=== PATIENT | female | born 1950 | race Caucasian/White ===

== ENCOUNTER 2016-11-14 08:52 | Inpatient (IN) ==
[2016-11-14] MEDS ORDERED: IOPAMIDOL 100 ML BOTTLE IJ ONE (08:53)
[2016-11-14] MEDS ORDERED: 0.9 % SODIUM CHLORIDE 1,000 ML IV ONE (09:21)
[2016-11-14] MEDS ORDERED: ONDANSETRON 4 MG/2 ML VIAL IV ONE (09:23)
--- NOTE | 2016-11-14 09:34 | Emergency Department Note ---
Abdominal Pain HPI - General Chief Complaint: Abdominal Pain Stated Complaint: abd pain Time Seen by Provider: 11/14/16 09:18 Source: patient Mode of arrival: ambulatory Limitations: no limitations - History of Present Illness HPI Narrative: 66-year-old female with a history of abdominal pain is in for the past 12 hours. s He said nausea, vomiting a lot and diarrhea. Been no blood in the stool. She is unable to give us a number. She denies urgency, frequency or dysuria, although the urine is showing large amount of leukocytes. On initial dip. Is having some slight suprapubic tenderness, but there is no CVA tenderness. She's had an appendectomy in the past - Related Data Home Medications Medication Instructions Recorded Confirmed Levothyroxine Sodium [Synthroid] 112 mcg PO DAILY 04/12/15 11/14/16 Losartan [Cozaar] 50 mg PO DAILY 04/12/15 11/14/16 Sertraline [Zoloft] 100 mg PO DAILY 04/12/15 11/14/16 Allergies Allergy/AdvReac Type Severity Reaction Status Date / Time Cephalosporins Allergy Severe Anaphylaxis Verified 07/27/16 14:12 Review of Systems All systems ED: reviewed and negative except as stated. Constitutional: Denies: fever, chills Gastrointestinal: Reports: as per HPI, abdominal pain, nausea, vomiting, diarrhea. Denies: constipation, hematemesis, melena, hematochezia Genitourinary: Reports: as per HPI. Denies: urgency, dysuria, frequency, hematuria, discharge Abdominal Pain PMH - Past Medical History Medical history: Reports: hypertension, other (polymyalgia rheumatica, lupus, hypothyroidism, vitiligo fibromyalgioa). Denies: coronary artery disease, CVA, TIA Surgical history ED: Reports: other Family history: Reports: other (mother diabetic lived to be 84. Father was 88) - Social History Alcohol use: Reports: Unknown Drug use: Reports: none Physical Exam - General Limitations: no limitations General appearance: alert, in no apparent distress - Head Head exam: atraumatic - Eye Eye exam: Present: normal appearance, PERRL - ENT ENT exam: normal exam, normal oropharynx - Neck Neck exam: Present: normal inspection, full ROM - Chest Chest inspection: Present: normal inspection. Absent: symmetric chest wall rise - Respiratory Respiratory exam: Present: normal lung sounds bilaterally. Absent: respiratory distress, wheezes - Cardiovascular Cardiovascular exam: Present: regular rate, normal rhythm. Absent: bradycardia , tachycardia - Abdominal Exam Abdominal exam: Present: soft. Absent: distention, tenderness - Extremities Exam Extremities exam: Present: normal inspection, full ROM - Back Exam Back exam: Present: normal inspection, full ROM - Neurological Exam Neurological exam: Present: alert, oriented X3 - Psychiatric Psychiatric exam: Present: normal affect, normal mood - Skin Skin exam: Present: warm Course Vital Signs Temperature 97.5 F L 11/14/16 08:53 Pulse Rate 62 11/14/16 08:53 Respiratory Rate 20 11/14/16 08:53 Blood Pressure 145/72 11/14/16 08:53 Pulse Oximetry (%) 99 11/14/16 08:53 Temperature 97.5 F L 11/14/16 08:53 Pulse Rate 64 11/14/16 12:15 Respiratory Rate 14 11/14/16 11:45 Blood Pressure 163/87 11/14/16 12:15 Pulse Oximetry (%) 98 11/14/16 12:15 Abdominal Pain - MDM Narrative Medical decision making narrative: patient has a UTI and patient was started on Levaquin IV 500 mg. Pain was tender throughout her abdomen and CT was performed which does reveal a small bowel obstruction on the right. She's had an appendectomy in the past. Dr. Bustillos contacted and is here to evaluate. NG tube has been placed - Lab Data Result diagrams: 11/14/16 09:32 11/14/16 09:32 Lab Results 11/14/16 11/14/16 11/14/16 Range/Units 09:20 09:32 09:32 WBC 12.5 H (4.5-11.0) K/mcL RBC 5.16 (4.00-5.20) M/mcL Hgb 14.8 (12.0-15.0) g/dL Hct 44.8 (36.0-48.0) % MCV 86.9 (80.0-100.0) fL MCH 28.7 (26.0-34.0) pg MCHC 33.0 (31.0-36.0) g/dL RDW 12.8 (11.5-14.5) % Plt Count 248 (140-440) K/mcL MPV 8.1 (7.4-10.4) fL Gran % 86.4 H (38.0-78.0) % Lymph % (Auto) 9.6 L (15.5-49.0) % [place] % (Auto) 2.0 (1.0-12.0) % Eos % (Auto) 1.8 (0.0-7.0) % Baso % (Auto) 0.2 (0.0-2.0) % Gran # 10.8 H (1.8-8.0) K/mcL Lymph # 1.2 L (1.5-4.8) K/mcL Greene # 0.2 (0.1-0.9) K/mcL Eos # 0.2 (0.0-0.7) K/mcL Baso # 0 (0.0-0.3) K/mcL Sodium 140 (133-145) mmol/L Potassium 4.3 (3.3-5.1) mmol/L Chloride 100 (96-108) mmol/L Carbon Dioxide 24 (22-30) mmol/L Anion Gap 16.0 (8-16) BUN 19 (8-23) mg/dl Creatinine 0.8 (0.6-1.1) mg/dl GFR Calculation 78 Glucose 143 H (70-105) mg/dL Calcium 9.2 (8.6-10.4) mg/dl Total Bilirubin 0.3 (0.0-1.0) mg/dL AST 16 (0-37) U/l ALT 12 (0-40) U/l Alkaline Phosphatase 92 (39-117) U/L Total Protein 7.6 (5.9-8.4) gm/dL Albumin 4.4 (3.2-5.2) gm/dL Globulin 3.2 (2.2-3.7) gm/dL Albumin/Globulin Ratio 1.4 (1.0-2.3) Lipase 19 (7-60) U/L Urine Color Yellow Urine Appearance Hazy Urine pH 6.0 (5.0-9.0) Ur Specific [place] 1.023 (1.000-1.035) Urine Protein Neg (NEG) mg/dL Urine Glucose (UA) Negative (NEG) mg/dL Urine Ketones Neg (NEG) mg/dL Urine Occult Blood >=1.0 A (<0.03) mg/dL Urine Nitrate Pos A (NEG) Urine Bilirubin Neg (NEG) mg/dL Urine Urobilinogen Neg (NEG) mg/dL Ur Leukocyte Esterase 75 A (NEG) /uL Urine RBC 26 H (0-1) /hpf Urine WBC 23 H (0-4) /hpf Ur Squamous Epith Cells 0 (0-4) /hpf Ur Transition Epith Cell < 1 (0-2) /hpf Calcium Oxalate Crystal Many A (0) /hpf Urine Bacteria Mod A (0) /hpf Urine Mucus Mod (0) /hpf Ur Culture Indicated? Yes Disposition Clinical Impression: Small bowel obstruction, UTI (urinary tract infection) Disposition: Xfer As Inpt ([facility]) Condition: Good Referrals: Madeline Guerrero ARNP [Primary Care Provider] - Time of Disposition: 13:12
[2016-11-14 09:54] LABS: Basophils # (Auto) 0 K/mcL (0.0-0.3); Basophils % (Auto) 0.2 % (0.0-2.0); Eosinophils # (Auto) 0.2 K/mcL (0.0-0.7); Eosinophils % (Auto) 1.8 % (0.0-7.0); Granulocytes % (Auto) 86.4 % (38.0-78.0); Lymphocytes # (Auto) 1.2 K/mcL (1.5-4.8); Lymphocytes % (Auto) 9.6 % (15.5-49.0); Mean Cell Volume 86.9 fL (80.0-100.0); Mean Corpuscular Hemoglobin 28.7 pg (26.0-34.0); Monocytes # (Auto) 0.2 K/mcL (0.1-0.9); Platelet Count 248 K/mcL (140-440); RBC 5.16 M/mcL (4.00-5.20); Red Cell Distribution Width 12.8 % (11.5-14.5)
[2016-11-14 10:12] LABS: ALT/SGPT 12 U/l (0-40); Albumin 4.4 gm/dL (3.2-5.2); Albumin/Globulin Ratio 1.4 (1.0-2.3); Alkaline Phosphatase 92 U/L (39-117); Blood Urea Nitrogen 19 mg/dl (8-23); Lipase 19 U/L (7-60)
[2016-11-14 10:26] LABS: Appearance,Urine HAZY; Bacteria,Urine MOD /hpf (0); Bilirubin,Urine NEG (NEG); Calcium Oxalate Crystals,Urine MANY /hpf (0); Color,Urine YELLOW; Glucose,Urine (UA) NEGATIVE (NEG); Leukocyte Esterase,Urine 75 /uL (NEG); Mucus,Urine MOD /hpf (0); Nitrate,Urine POS (NEG); Protein,Urine NEG (NEG); Specific Gravity,Urine 1.023 (1.000-1.035); Urine Blood >=1.0 mg/dL (<0.03); Urine RBC 26 /hpf (0-1); Urine Squamous Epithelial Cell 0 /hpf (0-4); Urine Transitional Epi Cells < 1 /hpf (0-2); Urine WBC 23 /hpf (0-4); Urobilinogen,Urine NEG (NEG)
--- NOTE | 2016-11-14 10:36 | XRay Report ---
CLINICAL INFORMATION: Abdominal pain TECHNIQUE: Supine and upright abdomen COMPARISON: CT scan dated 09/23/2011 FINDINGS: There is fecal material within the colon. There is small bowel gas in the midabdomen. No significant air-fluid levels. No pneumoperitoneum. No biliary or portal venous gas. No pneumatosis. Bowel gas pattern is considered nonspecific. No pathologic calcifications. No focal abnormality. IMPRESSION: Nonspecific abdomen. Interpreted and Authenticated by: Jayden Clayton 11/14/16
[2016-11-14] MEDS ORDERED: PANTOPRAZOLE 40 MG VIAL IV ONE (10:42)
[2016-11-14] MEDS: HYDROmorphone 2 MG/ML SYRINGE IV PRN ×5 (11:17→21:38)
[2016-11-14] MEDS ORDERED: PHENAZOPYRIDINE 200 MG TABLET PO ONE (11:18)
[2016-11-14] MEDS ORDERED: LEVOFLOXACIN 500 MG/100 ML BAG IV ONE (11:18)
--- NOTE | 2016-11-14 12:28 | Cat Scan Report ---
CLINICAL INFORMATION: History of urinary tract infection and abdominal aortic aneurysm. Abdominal pain. COMPARISON: Plain film examination dated 11/14/2016 TECHNIQUE: Axial images were obtained through the abdomen and pelvis. Sagittally and coronally reformatted images. 80 mL nonionic contrast material injected intravenously. Water was given as an oral contrast agent FINDINGS: Stomach and proximal small bowel are fluid-filled and distended. There appears to be a transition point in the midline proximal pelvis. Appearance is consistent with mechanical small bowel obstruction. There is no closed loop obstruction. There is no bowel wall thickening. No pneumatosis. No biliary or portal venous gas. Uterus is not identified consistent with previous hysterectomy. Neck given a history of other surgery. Adhesions are the most likely cause of this midline pelvic small bowel obstruction. There is a small amount of free fluid within the pelvis as well as around the liver. Lung bases are negative. No parenchymal infiltrate or mass. Liver is negative. No focal intrahepatic abnormalities. Gallbladder is present. No calcified gallstones. Spleen is negative. No splenomegaly. Normal enhancement splenic and portal veins. Negative pancreas. No pancreatic mass. Adrenal glands are negative. Kidneys are negative. No solid or cystic mass. No hydronephrosis. Patient gives a history of abdominal aortic aneurysm. There is calcification of the abdominal aorta. Maximum AP diameter measures 3.2 cm. No paraaortic soft tissue abnormality. No retroperitoneal or mesenteric adenopathy. Degenerative disc disease at L4-L5. Sacrum and pelvis are negative. No fracture. No lytic lesion. IMPRESSION: 1. Findings consistent with mechanical small bowel obstruction. Transition point in the midline pelvis 2. Small amount of free intraperitoneal fluid. No bowel wall thickening. Interpreted and Authenticated by: Jayden Clayton 11/14/16
--- NOTE | 2016-11-14 13:02 | XRay Report ---
CLINICAL INFORMATION: Esophagogastric tube placement TECHNIQUE: AP abdomen and lower chest COMPARISON: None. FINDINGS: Esophagogastric tube with its tip in the stomach. The tip is at the proximal body. IMPRESSION: Esophagogastric tube in the stomach Interpreted and Authenticated by: Jayden Clayton 11/14/16
--- NOTE | 2016-11-14 14:17 | Consultation ---
DATE OF CONSULTATION: 11/14/2016 CHIEF COMPLAINT: The patient is seen in consultation at the request of Dr. Packer for abdominal pain with associated nausea, vomiting and diarrhea. HISTORY OF PRESENT ILLNESS: The patient is a 66-year-old woman who presented to the emergency department with complaints of abdominal pain that began at 10:00 last night. She describes it as a very bad abdominal pain that started in the middle of her abdomen. She tried to get relief by trying to force herself to pass stool thinking this would help. Initially, she passed small bits of formed stool, but then subsequently this turned to diarrhea. She had 3 episodes of diarrhea last night. This, however, did not help her abdominal pain. She subsequently had an episode of emesis which consisted of about 2 to 3 cups in amount of white liquid. She reports that she had cereal for dinner. She also tried walking and tried warm packs and ice packs as well as Rolaids to help alleviate her pain but none of this helped. Because of the persistence of her pain, she presented to the Emergency Department today for further evaluation. She denies ever having had pain like this before. Her past medical history is significant for previous abdominal operations as well as a recently diagnosed abdominal aortic aneurysm for which she is scheduled to follow up with a quiller runner in [place] in November. REVIEW OF SYSTEMS: Constitutional: Denies fevers or chills. Pulmonary: Denies any new cough or onset of production of sputum. Denies any history of asthma or COPD. Cardiovascular: Denies chest pain or pressure at rest or with exertion. Denies history of arrhythmia, or palpitations. Denies history of OK. Reports that she is able to walk up 2 flights of stairs without difficulty. Hematologic: She reports a history of pulmonary embolism in 1973. She reports no further blood clots or clotting disorder since then. She denies any history of blood transfusion. : She reports a \\"constant UTI\\" which began around mid . She has never been evaluated by a truck caterer or a urologist for this. She does report dysuria with urination. GI: Abdominal pain with nausea, vomiting and diarrhea as per above. Denies any history of liver disease or diagnosis of hepatitis. ALLERGIES: She reports an allergy to CEPHALOSPORINS with reaction of anaphylaxis. She states she is able to take penicillins and has taken penicillin in the past including amoxicillin and other types of penicillin. PAST MEDICAL HISTORY: 1. Polymyalgia rheumatica. 2. Lupus. 3. Recent diagnosis of abdominal aortic aneurysm. 4. Tubal ligation in the complicated by a retained sponge with followup surgery for removal of sponge and bilateral oophorectomy. 5. Hysterectomy in 1973. 6. Bladder suspension in 1979. 7. Perirectal abscess with drainage in 1973. 8. Pulmonary embolus in 1973, treated with anticoagulant therapy. 9. Benign abdominal tumor removal 30 years ago. SOCIAL HISTORY: The patient is a smoker of 1 pack of cigarettes per day for 45 years. She denies alcohol intake. She denies recreational drug use. She is and lives locally. 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 PHYSICAL EXAMINATION: VITAL SIGNS: Temperature 97.5, pulse 59, blood pressure 163/87. O2 saturation is 98 percent on room air. GENERAL: Ms. Mercado is a well-developed, well-nourished woman in no acute distress. HEENT: Head is normocephalic. Sclerae are white. Mucous membranes are moist. NG tube is in place with nonbilious, mostly clear gastric output. NECK: Supple. CHEST: Breath sounds are clear bilaterally. No rales or wheezes are heard. No use of accessory respiratory musculature. CARDIOVASCULAR: Regular rhythm and rate. ABDOMEN: Soft, tender in the right mid abdomen and in the upper left quadrant. No guarding or rebound noted. No masses palpated. There is a well-healed vertical midline scar in the infraumbilical position. EXTREMITIES: Warm without cyanosis, clubbing, or edema. DP pulses are easily palpable bilaterally. : Normal genitalia. There is a scar in the perianal skin extending laterally on the right side from site of previous perirectal abscess drainage. LABS AND STUDIES: CBC shows an elevated white blood cell count of 12.5 with a left shift of 86.4. Hemoglobin is 14.8, hematocrit 44.8 and platelets of 248. Serum chemistries show sodium of 140, potassium 4.3, chloride 100, CO2 24, anion gap 16, BUN 19, creatinine 0.8, glucose 143, total bilirubin 0.3, AST 16, ALT 12, alkaline phosphatase 92, albumin 4.4 and lipase of 19. Urinalysis is positive for leukocyte esterase, white blood cells and RBCs with no squamous epithelial cells. Bacteria is also present. Urine is reflexed to culture. CT scan of the abdomen and pelvis was performed while the patient was in the emergency department. I have reviewed the CT scan images with the radiologist. There is fluid-filled distention of the proximal small bowel with an area that appears to be a transition point in the midline in the pelvis. Findings are consistent with a small-bowel obstruction. There are no changes to suggest a closed loop obstruction. No bowel wall thickening. No pneumatosis. ASSESSMENT AND PLAN: 1. Mechanical small-bowel obstruction. I reviewed with the patient and her daughter, who was also present throughout the evaluation and discussion, findings on imaging and explained what this diagnosis means. Given her multiple prior abdominal surgeries, it is probable that scar tissue may be contributing to kinking of the bowel causing a mechanical obstruction, even if she was able to pass stool yesterday and that there is stool noted in the colon on CT scan and examination at this time does not reveal signs of significant distention or peritonitis. Treatment will be with more conservative management with NG tube placement and decompression of the bowel along with keeping her nothing by mouth and IV fluid hydration. Serial exams and repeat abdominal x-rays to follow her progress will be performed. If there is worsening of her bowel obstruction or it appears this is not to resolve with conservative management, then we did discuss that there would be a need for operative intervention. The patient verbalized understanding and agreement with this plan. 2. Urinary tract infection. The patient has already been dosed with antibiotics here during the Emergency Department. These will be continued upon admission. RC:[email or web address] Job ID: [id number] Doc ID: [id number] Johanne Bustillos MD
[2016-11-14] MEDS ORDERED: ONDANSETRON 4 MG/2 ML VIAL IV PRN (14:54)
[2016-11-14] MEDS: LACTATED RINGERS 1,000 ML IV SCH (15:06)
[2016-11-15] MEDS: LACTATED RINGERS 1,000 ML IV SCH ×3 (01:08→21:02)
[2016-11-15] MEDS: HYDROmorphone 2 MG/ML SYRINGE IV PRN ×5 (01:23→20:57)
[2016-11-15 06:59] LABS: Basophils # (Auto) 0 K/mcL (0.0-0.3); Basophils % (Auto) 0.3 % (0.0-2.0); Eosinophils # (Auto) 0.2 K/mcL (0.0-0.7); Eosinophils % (Auto) 1.6 % (0.0-7.0); Granulocytes % (Auto) 72.6 % (38.0-78.0); Lymphocytes # (Auto) 2.1 K/mcL (1.5-4.8); Mean Corpuscular HGB Conc 33.5 g/dL (31.0-36.0); Mean Corpuscular Hemoglobin 29.2 pg (26.0-34.0); Monocytes # (Auto) 0.5 K/mcL (0.1-0.9); Monocytes % (Auto) 4.5 % (1.0-12.0); Platelet Count 216 K/mcL (140-440); RBC 4.73 M/mcL (4.00-5.20); Red Cell Distribution Width 13.2 % (11.5-14.5)
--- NOTE | 2016-11-15 07:33 | XRay Report ---
CLINICAL INFORMATION: Small bowel obstruction TECHNIQUE: Supine and upright abdomen COMPARISON: Previous plain film examination dated 11/14/[address] scan dated 11/14/2016 FINDINGS: Bowel gas pattern is currently considered nonspecific. There is some small bowel gas. There is minimal colonic gas. No significant air-fluid levels on upright abdomen. No pneumoperitoneum. No biliary or portal venous gas. Esophagogastric tube remains in the stomach. IMPRESSION: Nonspecific bowel gas pattern. No distended gas-filled small bowel Interpreted and Authenticated by: Jayden Clayton 11/15/16
[2016-11-15 07:35] LABS: ALT/SGPT 9 U/l (0-40); Albumin 3.5 gm/dL (3.2-5.2); Albumin/Globulin Ratio 1.3 (1.0-2.3); Alkaline Phosphatase 72 U/L (39-117); Blood Urea Nitrogen 13 mg/dl (8-23)
--- NOTE | 2016-11-15 07:40 | General Surgery Progress Note ---
[id number] Date, if different from initiated Date: [] Patient: Yanira Mercado 66 y/o F admitted on 11/14/16 for abd pain. Chief Complaint: Patient sitting up in bed. Still has abdominal pain. No nausea or emesis. NGT output minimal. Reports a small episode of flatus this morning. Vital Signs Temp Pulse Resp BP Pulse Ox 98.4 F 64 18 137/76 91 11/15/16 07:19 11/15/16 07:19 11/15/16 07:19 11/15/16 07:19 11/15/16 07:19 Period Temp Pulse Resp BP Sys/Cardona Pulse Ox Last 24 Hr 97.5 F-98.6 F 57-92 14-20 135-170/66-88 90-99 Intake and Output 11/14/16 11/15/16 11/15/16 21:59 05:59 13:59 Intake Total 1000 / 1000 Output Total 425 / 425 550 / 550 Balance -425 / -425 450 / 450 Weight 144 lb 8 oz PE: No distress Chest: clear bilaterally CV: regular rate and rhythm. Pulse recorded by Propac earlier in 90s upon awakening but manually at bedside pulse is in 60s. ABD: soft, LUQ tenderness unchanged. Non distended. No guarding or rebound. NGT in place with minimal output since last night--non bilious, gastric. EXT: Warm, no edema. DP pulses easily palpable. A/P: Mechanical Small Bowel Obstruction NGT output minimal. Xrays show nonspecific bowel gas pattern and no air-fluid levels. Had small amount of flatus. Will ambulate in halls. Trial clamping NGT since output has been minimal.
[2016-11-15] MEDS ORDERED: MAGNESIUM HYDROXIDE 30 ML ORAL.SUSP PO ONE (07:41)
[2016-11-15] MEDS: PANTOPRAZOLE 40 MG VIAL IV SCH (09:06)
[2016-11-15] MEDS: LEVOFLOXACIN 500 MG/100 ML BAG IV SCH (09:06)
[2016-11-16] MEDS: HYDROmorphone 2 MG/ML SYRINGE IV PRN ×2 (02:51→07:19)
[2016-11-16] MEDS: PANTOPRAZOLE 40 MG VIAL IV SCH (07:22)
[2016-11-16] MEDS: LACTATED RINGERS 1,000 ML IV SCH (07:30)
--- NOTE | 2016-11-16 07:31 | General Surgery Progress Note ---
Surgical - Auxillary Note - Subjective Patient Information: Note initiated : 11/16/16 at 7:18 am Service Date, if different from initiated Date: [] Patient: Yanira Mercado 66 y/o F admitted on 11/14/16 for abd pain. Chief Complaint: Patient sitting up in bed. Abdominal pain improved. Passing more flatus and had a bowel movement. Took some clears yesterday without issue: no nausea or emesis. Has new complaint of low back pain. Denies fall or injury to the area. Denies radiation of pain. Vital Signs Temp Pulse Resp BP Pulse Ox 97.1 F L 64 18 144/75 91 11/16/16 07:17 11/16/16 07:17 11/16/16 07:17 11/16/16 07:17 11/16/16 07:17 Period Temp Pulse Resp BP Sys/Cardona Pulse Ox Last 24 Hr 96.7 F-98.2 F 59-67 18-20 110-150/70-85 90-96 Intake and Output 11/15/16 11/16/16 11/16/16 21:59 05:59 13:59 Intake Total 460 / 460 200 / 200 Output Total 830 / 830 250 / 250 900 / 900 Balance -370 / -370 -50 / -50 -900 / -900 Weight 145 lb 8 oz PE: No distress chest: clear to auscultation CV: regular rate and rhythm ABD: soft, non distended. LUQ tenderness resolved; no other tenderness. Musculoskeletal: Back with out stepoff. Reports tenderness in lumbar area over right paraspinous muscles. EXT w/ normal strength and sensation. Microbiology 11/14/16 09:20 Urine - Clean Void Mid-Stream Urine Culture - Preliminary Gram negative bacillus ABD xrays just taken. Radiology report Pending but on my review of images bowel has nonspecific pattern with air in large bowel and without dilatation or sign of obstruction. A/P: SBO: clinically improving. Advance to full liquids. If tolerated can go home later today. UTI: Cx w/ Gram Neg Bacillus; ID and sensitivities pending. On Levaquin. Has hx of recurrent UTIs without w/u. Recommend referral to Urology. Lumbar pain w/o radicular sxs: new. Xrays taken. If no bony abnormality then suspect this may be muscle spasm related given absence of recent fall or injury.
--- NOTE | 2016-11-16 09:07 | XRay Report ---
CLINICAL INFORMATION: Small bowel obstruction COMPARISON: 11/15/2016 FINDINGS: Stool gas pattern is unremarkable. No free air, soft tissue mass or organomegaly. A 10 mm phlebolith overlying the right sacrum seen - as before. IMPRESSION: Negative Interpreted and Authenticated by: Jayden Cisneros 11/16/16
--- NOTE | 2016-11-16 09:11 | XRay Report ---
CLINICAL INFORMATION: Low back pain COMPARISON: 10/21/2016 FINDINGS: Moderate dextro scoliotic curve is appreciated. Moderate degenerative disc disease present at L4-5 with mild degenerative disc disease at L1-2 and L2-3. There is moderate right L4-5 degenerative facet disease - unchanged. No focal osseous abnormality. Soft tissues are unremarkable. IMPRESSION: 1. Mild L1-L2 three moderate L4-5 degenerative disc disease. Moderate right L4-5 degenerative facet disease. 2. Soft tissues are unremarkable on plain film. A 3.2 cm fusiform infrarenal abdominal aortic aneurysm is acknowledged from recent CT. Suggest: one year follow-up abdominal aortic ultrasound Interpreted and Authenticated by: Jayden Cisneros 11/16/16
[2016-11-16] MEDS: LEVOFLOXACIN 500 MG/100 ML BAG IV SCH (09:15)
[2016-11-16] MEDS ORDERED: KETOROLAC 15 MG/ML VIAL IV ONE (10:36)
--- NOTE | 2016-11-16 14:17 | XRay Report ---
CLINICAL INFORMATION: Bowel obstruction COMPARISON: None. FINDINGS: The GI tract is decompressed. There is no free air, soft tissue mass or organomegaly. 10 mm phlebolith overlies the right mid sacrum which demonstrates long-term stability IMPRESSION: Decompressed GI tract - as previously seen. If there is strong suspicion for acute intra-abdominal disease, suggest repeat abdomen and pelvic CT Interpreted and Authenticated by: Jayden Cisneros 11/16/16
[2016-11-16] MEDS ORDERED: BISACODYL 10 MG SUPP.RECT PR PRN (19:10)
[2016-11-16] MEDS ORDERED: MAGNESIUM HYDROXIDE 30 ML ORAL.SUSP PO PRN (19:10)
[2016-11-16] MEDS ORDERED: FLEETS ADULT ENEMA PR PRN (19:10)
[2016-11-16] MEDS ORDERED: DOCUSATE SODIUM 100 MG CAPSULE PO SCH (21:00)
[2016-11-17 05:39] LABS: Basophils # (Auto) 0 K/mcL (0.0-0.3); Basophils % (Auto) 0.3 % (0.0-2.0); Eosinophils # (Auto) 0.4 K/mcL (0.0-0.7); Eosinophils % (Auto) 4.2 % (0.0-7.0); Granulocytes % (Auto) 63.6 % (38.0-78.0); Lymphocytes # (Auto) 2.1 K/mcL (1.5-4.8); Mean Cell Volume 87.5 fL (80.0-100.0); Mean Corpuscular HGB Conc 33.4 g/dL (31.0-36.0); Mean Corpuscular Hemoglobin 29.3 pg (26.0-34.0); Monocytes # (Auto) 0.6 K/mcL (0.1-0.9); Monocytes % (Auto) 6.9 % (1.0-12.0); Platelet Count 193 K/mcL (140-440); RBC 4.19 M/mcL (4.00-5.20)
--- NOTE | 2016-11-17 07:31 | General Surgery Progress Note ---
Surgical - Auxillary Note - Subjective Patient Information: Note initiated : 11/17/16 at 7:23 am Service Date, if different from initiated Date: [] Patient: Yanira Mercado a 66 y/o F admitted on 11/14/16 for Abd Pain/Small Bowel Obstruction, UTI. Chief Complaint: Ms. Mercado was kept overnight for close monitoring as despite passing of stools and flatus she continued to have abdominal pain and tenderness that required treatment with pain meds. Repeat imaging yesterday afternoon showed no sign of developing obstruction. It was decided to continue w liquids as tolerated and monitor her progress. Patient has already been up and walking in the halls. Says she is feeling well. Denies pain. Has had further BM and flatus overnight. Vital Signs Temp Pulse Resp BP Pulse Ox 97.3 F L 64 16 166/79 96 11/17/16 03:24 11/17/16 03:24 11/17/16 03:24 11/17/16 03:24 11/17/16 03:24 Period Temp Pulse Resp BP Sys/Cardona Pulse Ox Last 24 Hr 96.5 F-98.1 F 61-67 16-18 125-166/73-81 94-97 Intake and Output 11/16/16 11/17/16 11/17/16 21:59 05:59 13:59 Intake Total 940 / 940 450 / 450 Output Total 600 / 600 100 / 100 Balance 340 / 340 350 / 350 Weight 146 lb PE: No distress. Chest: clear bilaterally CV: regular rhythm ABD: soft, non tender and non distended. EXT: warm no edema. CBC and Chem 7 11/17/16 03:40 A/P: Bowel Obstruction: resolved. Home today Low back pain. Xrays from yesterday show degenerative disc disease. Patient will f/u w/ PCP
[2016-11-17] MEDS: PANTOPRAZOLE 40 MG VIAL IV SCH (07:35)
--- NOTE | 2016-11-17 08:11 | XRay Report ---
CLINICAL INFORMATION: Abdominal pain history of bowel obstruction COMPARISON: 11/16/2016 FINDINGS: There are scattered air-fluid levels within normal caliber colon and small bowel suggesting mild ileus. No plain film evidence of recurrent bowel obstruction. No soft tissue mass, free air, organomegaly or pathologic calcification IMPRESSION: Mild ileus - no plain film evidence for recurrent small bowel obstruction Interpreted and Authenticated by: Jayden Cisneros 11/17/16
--- NOTE | 2016-11-17 10:04 | Discharge Summary ---
Providers - Providers Patient information: Note initiated : 11/17/16 at 9:56 am Service Date, if different from initiated Date: [] Patient: Yanira Mercado 66 y/o F admitted on 11/14/16 for Abd Pain/Small Bowel Obstruction, UTI. Chief Complaint: [] Date of admission: 11/14/16 Discharge date: 11/17/16 Attending physician: Johanne Bustillos Hospitalization Hospital course: Patient admitted for bowel obstruction and was treated conservatively with NGT decompression and bowel rest. By hospital day #2 she was showing return of bowel function evidenced by flatus and small BMs. She was started on clear liquids and advanced to full liquid diet. Yesterday she appeared well but then complained of abdominal pain that still required pain medication for relief. She was held for continued observation and during this time her abdominal pain resolved and her exam continued to improve. On the morning of discharge she was without pain, tolerating p.o. and passing gas and stool. On admission patient was also found to have a UTI which has been treated with levaquin Discharge diagnosis: bowel obstruction and UTI Reason for admission: Bowel obstruction Exam Temp Pulse Resp BP Pulse Ox 96.2 F L 59 L 16 155/89 98 11/17/16 07:34 11/17/16 07:34 11/17/16 07:34 11/17/16 07:34 11/17/16 07:34 Discharge Plan - Patient/Caregiver Discharge Instructions Activity: increase activity as tolerated Diet: Low Fiber Additional Instructions: please schedule patient for consult with Dr. Trotter in Urology for recurrent UTIs Prescriptions: Levofloxacin [Levaquin] 500 mg PO Q24 #7 tablet - Follow up Plan Follow up with: Madeline Guerrero ARNP [Primary Care Provider] - Disposition: Home, Self-Care Prognosis: Good Rehab Potential: Good Pending Studies Diet Full Liquid Diet Start WedNov 16 Breakfast Docusate Sodium (Colace) 100 mg PO BID HYACINTH Last Admin: 11/16/16 20:11 Dose: 100 mg Levofloxacin (Levaquin) 500 mg in 100 mls @ 100 mls/hr IV DAILY HYACINTH Last Infusion: 11/16/16 10:15 Dose: 0 mls/hr Admin: 11/16/16 09:15 Dose: 100 mls/hr Infusion: 11/15/16 16:51 Dose: 100 mls/hr Admin: 11/15/16 09:06 Dose: 100 mls/hr Magnesium Hydroxide (Milk Of Magnesia) 30 ml PO DAILYP PRN PRN Reason: Constipation Last Admin: 11/16/16 20:11 Dose: 30 ml Ondansetron HCl (Zofran) 4 mg IV Q4-6HP PRN PRN Reason: Nausea And Vomiting Last Admin: 11/14/16 19:40 Dose: 4 mg Pantoprazole Sodium (Protonix) 40 mg IV QAMAC [facility] Last Admin: 11/17/16 07:35 Dose: 40 mg Admin: 11/16/16 07:22 Dose: 40 mg Admin: 11/15/16 09:06 Dose: 40 mg Shift Summary 11/17/16 03:39 Shift Summary by [place] Pt a&o x4, VSS on RA. Pt is up ad elie in room and halls. C/O abdominal pain decreased by using hot packs. Bowel protocol started and received MOM with "explosive" results. Pt still has continuos abdominal pain. BT hyperactive. CT scan done yesterday and nothing was seen. Pt is wants to DC today home. Will update further at bedside. Initialized on 11/17/16 03:39 - END OF NOTE
== END 2016-11-17 11:00 | disposition home or self-care (01) | DRG 389 ==
LOC: ED 08:52 → MEDSUR 14:34
PROVIDERS: ADMIT Surgery; ATTEND Surgery